=== PATIENT | female | born 1945 | race Caucasian/White ===

== ENCOUNTER 2025-01-05 14:18 | Inpatient (IN) | payer MEDICARE ==
[~2025-01-05] VITALS: Ht 162.6 cm; Wt 72.6 kg
[2025-01-05] MEDS ORDERED: DONE5TAB34 PO (14:41)
[2025-01-05] MEDS ORDERED: QUET25TA PO (14:41)
[2025-01-05] MEDS ORDERED: MEMA10TA PO (14:41)
[2025-01-05] MEDS ORDERED: OLME40TA12 PO (14:41)
[2025-01-05] MEDS ORDERED: TRAZ-182 PO (14:41)
[2025-01-05] MEDS ORDERED: AMLO10TA59 PO (14:41)
[2025-01-05] MEDS ORDERED: CARV25TA2 PO (14:41)
[2025-01-05 15:00] LABS: BASOPHILS % (AUTO) 0.5 % (0.0-2.0); EOSINOPHILS # (AUTO) 0.2 K/uL (0.0-0.7); EOSINOPHILS % (AUTO) 3.6 % (0.0-7.0); HEMATOCRIT 37.6 % (31.2-41.9); HEMOGLOBIN 12.3 g/dL (10.9-14.3); LYMPHOCYTES # (AUTO) 0.5 K/uL (0.8-4.8); LYMPHOCYTES % (AUTO) 12.6 % (20.5-51.5); MEAN CORPUSCULAR HEMOGLOBIN 28.6 uug (24.7-32.8); MEAN CORPUSCULAR HGB CONC 33 g/dL (32.3-35.6); MEAN CORPUSCULAR VOLUME 87.1 fL (75.5-95.3); MONOCYTES # (AUTO) 0.6 K/uL (0.1-1.30); MONOCYTES % (AUTO) 14.9 % (0.0-11.0); NEUTROPHILS # (AUTO) 2.9 K/uL (1.8-8.9); NEUTROPHILS % (AUTO) 68.4 % (38.5-71.5); PLATELET COUNT (AUTO) 124 K/uL (179-408); RED BLOOD CELL COUNT(AUTO) 4.32 MIL/uL (3.63-4.92); RED CELL DISTRIBUTION WIDTH 14.4 % (12.3-17.7); WHITE BLOOD COUNT (AUTO) 4.2 K/uL (3.8-11.8)
[2025-01-05 15:07] LABS: CALCIUM 8.9 mg/dL (8.5-10.1); CARBON DIOXIDE 28 mmol/L (21-32); CHLORIDE 106 mmol/L (98-107); CREATININE 1.1 mg/dL (0.6-1.3); GLUCOSE 154 mg/dL (74-106); POTASSIUM 3.3 mmol/L (3.5-5.1); SODIUM SERUM 144 mmol/L (136-145); UREA NITROGEN, BLOOD 24 mg/dL (7-18)
[2025-01-05 15:10] LABS: DIFFERENTIAL COMMENT 1
[2025-01-05 15:13] LABS: ALANINE AMINOTRANSFERASE 48 U/L (14-59); ALBUMIN 3.1 g/dL (3.4-5.0); ALKALINE PHOSPHATASE 120 U/L (50-136); ASPARTATE AMINOTRANSFERASE 16 U/L (15-37); BILIRUBIN,DIRECT 0.2 mg/dL (0.0-0.2); BILIRUBIN,TOTAL 1.1 mg/dL (0.2-1.0); TOTAL PROTEIN, SERUM 6.8 g/dL (6.4-8.2)
[2025-01-05 15:21] LABS: THYROID STIMULATING HORMONE 1.177 mIU/mL (0.358-3.740)
[2025-01-05 15:24] LABS: ETHANOL < 3 MG/DL (0-10)
[2025-01-05 16:09] LABS: *BILIRUBIN,URIN 1+ (NEGATIVE); *BLOOD, URINE NEGATIVE (NEGATIVE); *CLARITY,URINE CLEAR (CLEAR); *COLOR,URINE DARK YELLOW (YELLOW); *KETONES,URINE NEGATIVE (NEGATIVE); *PROTEIN,URINE 1+ (NEGATIVE); LEUKOCYTE ESTERASE ,URINE NEGATIVE (NEGATIVE); NITRITE, URINE NEGATIVE (NEGATIVE); PH,URINE 5.5 (5.0-8.0); UGLUCOSE NEGATIVE (NEGATIVE)
[2025-01-05 16:25] LABS: *AMPHETAMINE, URINE NEGATIVE (NEGATIVE); *BARBITURATE, URINE NEGATIVE (NEGATIVE); *BENZODIAZEPINE, URINE POSITIVE (NEGATIVE); *CANNABINOID, URINE NEGATIVE (NEGATIVE); *COCCAINE, URINE NEGATIVE (NEGATIVE); *OPIATE, URINE NEGATIVE (NEGATIVE); *PHENCYCLIDINE SCREEN,URINE NEGATIVE (NEGATIVE); FENTANYL, URINE NEGATIVE (NEGATIVE)
[2025-01-05 16:29] LABS: BACTERIA,URINE FEW /HPF (NONE SEEN); RBC,URINE 0-3 /HPF (0-3); SQUAMOUS EPITHELIAL CELL,UR FEW /HPF (NONE SEEN); WBC,URINE 0-3 /HPF (0-3)
[2025-01-05] MEDS ORDERED: LORAZEPAM 1 MG TABLET ONE (18:47)
[2025-01-05] MEDS: LORAZEPAM 0.5 MG TABLET PO ONE (18:48)
[2025-01-05 21:00] VITALS: TEMP 97.9; O2SAT 94
[2025-01-05] MEDS ORDERED: LORAZEPAM 1 MG TABLET PO PRN (21:30)
[2025-01-05] MEDS ORDERED: MAG HYDROX/AL HYDROX/SIMETH 30 ML LIQUID UDC PO PRN (21:30)
[2025-01-05] MEDS ORDERED: MAGNESIUM HYDROXIDE 30 ML LIQUID UDC PO PRN (21:30)
[2025-01-05] MEDS ORDERED: TEMAZEPAM 7.5 MG CAPSULE PO PRN ×2 (21:30)
[2025-01-05] MEDS ORDERED: MEMANTINE HCL 10 MG TABLET PO SCH (22:30)
[2025-01-05] MEDS ORDERED: DONEPEZIL 5 MG TABLET PO SCH (22:30)
[2025-01-05] MEDS: FUROSEMIDE 40 MG TABLET PO ONE (23:21)
[2025-01-05] MEDS: POTASSIUM CHLORIDE 20 MEQ TAB.PRT.SR PO ONE (23:21)
[2025-01-05] MEDS: CARVEDILOL 25 MG TABLET PO SCH (23:23)
[2025-01-06] MEDS: TOBRAMYCIN 0.3% OPHT DROP 5 ML BOTTLE EACHEYE SCH
[2025-01-06] MEDS ORDERED: REMEDY ESSENTIAL ZINC PASTE 113 GM TOP SCH (03:45)
[2025-01-06] MEDS ORDERED: REMEDY ESSENTIAL ZINC PASTE 113 GM TOP PRN (04:21)
[2025-01-06 08:02] VITALS: BP 116/66; TEMP 97.9; O2SAT 94
[2025-01-06] MEDS: AMLODIPINE 10 MG TABLET PO SCH (09:14)
[2025-01-06] MEDS: LOSARTAN POTASSIUM 50 MG TABLET PO SCH (09:14)
[2025-01-06 09:15] VITALS: BP 116/66
[2025-01-06 10:59] VITALS: O2SAT 95
[2025-01-06] MEDS: ALBUTEROL SULFATE 1.25 MG/3 ML NEBU NEB PRN (10:59)
[2025-01-06] MEDS: IPRATROPIUM BROMIDE 0.5 MG/2.5 ML NEBU NEB PRN (10:59)
[2025-01-06] MEDS: ACETYLCYSTEINE 10% 4ML VIAL NEB SCH (10:59)
[2025-01-06 11:09] VITALS: O2SAT 98
[2025-01-06] MEDS: FUROSEMIDE 20 MG TABLET PO SCH (11:25)
[2025-01-06] MEDS: LORAZEPAM 0.5 MG TABLET PO PRN (12:57)
[2025-01-06] MEDS: ACETAMINOPHEN 325 MG TABLET PO PRN (12:58)
[2025-01-06 14:02] LABS: CALCIUM 8.8 mg/dL (8.5-10.1); CARBON DIOXIDE 27 mmol/L (21-32); CHLORIDE 107 mmol/L (98-107); CREATININE 0.9 mg/dL (0.6-1.3); GLUCOSE 128 mg/dL (74-106); MAGNESIUM 2.2 mg/dL (1.8-2.4); POTASSIUM 3.8 mmol/L (3.5-5.1); SODIUM SERUM 144 mmol/L (136-145); UREA NITROGEN, BLOOD 21 mg/dL (7-18)
[2025-01-06 14:20] VITALS: O2SAT 96
[2025-01-06 14:40] VITALS: O2SAT 100
[2025-01-06] MEDS ORDERED: MEMANTINE HCL 5 MG TABLET PO SCH (17:00)
[2025-01-06] MEDS ORDERED: AMLO-212 PO (18:41)
[2025-01-06] MEDS ORDERED: MEMA5TAB42 PO (18:44)
[2025-01-06] MEDS ORDERED: QUETIAPINE FUMARATE 25 MG TABLET PO SCH (21:00)
== END 2025-01-06 16:31 | disposition short-term general hospital (02) | DRG 885 ==
LOC: ER 14:27 → GPS 19:59
PROVIDERS: ADMIT Psychiatry & Neurology Psychosomatic Medicine; ATTEND Nurse Practitioner Acute Care
DX: F29 Unspecified psychosis not due to a substance or known physiological condition (principal); I11.0 Hypertensive heart disease with heart failure; F02.818 Dementia in other diseases classified elsewhere, unspecified severity, with other behavioral disturbance; E44.1 Mild protein-calorie malnutrition; J44.0 Chronic obstructive pulmonary disease with (acute) lower respiratory infection; G30.9 Alzheimer's disease, unspecified; Z68.27 Body mass index [BMI] 27.0-27.9, adult; E87.6 Hypokalemia; J20.9 Acute bronchitis, unspecified; I50.9 Heart failure, unspecified; Z79.899 Other long term (current) drug therapy; Z95.0 Presence of cardiac pacemaker
CPT/HCPCS: 36415; 71045; 83735; 84443; 85025; 94640; 94664; 94760; C1758; G0480; J3590

== ENCOUNTER 2025-01-06 17:49 | Inpatient (IN) | payer MEDICARE ==
[~2025-01-06] VITALS: Ht 162.6 cm; Wt 77.5 kg
[~2025-01-06 17:49] MED LIST: AMLO10TA59 PO; CARV25TA2 PO; DONE5TAB34 PO; MEMA10TA PO; OLME40TA12 PO; QUET25TA PO; TRAZ-182 PO
[2025-01-06 18:19] VITALS: BP 121/57; TEMP 96
[2025-01-06] MEDS: LORAZEPAM 2 MG/1 ML VIAL IM ONE (18:41)
[2025-01-06] MEDS ORDERED: AMLO-212 PO (18:41)
[2025-01-06] MEDS ORDERED: MEMA5TAB42 PO (18:44)
[2025-01-06 20:00] VITALS: BP 133/55; TEMP 98.4; O2SAT 95
[2025-01-06] MEDS ORDERED: MAGNESIUM HYDROXIDE 30 ML LIQUID UDC PO PRN (20:00)
[2025-01-06] MEDS ORDERED: ONDANSETRON 4 MG/2 ML VIAL IV PRN (20:00)
[2025-01-06] MEDS: QUETIAPINE FUMARATE 25 MG TABLET PO SCH (21:08)
[2025-01-06] MEDS: DONEPEZIL 5 MG TABLET PO SCH (21:08)
[2025-01-06] MEDS: ACETAMINOPHEN 325 MG TABLET PO PRN (21:08)
[2025-01-06] MEDS: MEMANTINE HCL 5 MG TABLET PO SCH (21:08)
[2025-01-06] MEDS: ENOXAPARIN SODIUM 40 MG/0.4 ML DISP.SYRIN SQ SCH (21:52)
[2025-01-06] MEDS ORDERED: CEFEPIME HCL 1 G VIAL ONE (22:10)
[2025-01-06] MEDS ORDERED: TOBRAMYCIN 0.3% OPHT DROP 5 ML BOTTLE ONE (22:10)
[2025-01-06 22:17] VITALS: O2SAT 92
[2025-01-06] MEDS: ALBUTEROL SULFATE 1.25 MG/3 ML NEBU NEB PRN (22:17)
[2025-01-06] MEDS: IPRATROPIUM BROMIDE 0.5 MG/2.5 ML NEBU NEB PRN (22:17)
[2025-01-06 22:28] VITALS: O2SAT 96
[2025-01-06] MEDS: ACETYLCYSTEINE 10% 4ML VIAL NEB SCH (22:34)
[2025-01-06 22:43] VITALS: O2SAT 96
[2025-01-06] MEDS: CEFEPIME HCL 1 G in IV DEXTROSE 5% 50 ML IV ONE (22:45)
[2025-01-06] MEDS: TOBRAMYCIN/DEXAMETH OPHT DROP 2.5 ML BOTTLE RIGHTEYE SCH (23:14)
[2025-01-07] VITALS (11 sets, daily range): BP systolic 122–144; BP diastolic 58–77; TEMP 97.8–98.8; O2SAT 92–99
[2025-01-07] MEDS: TRAZODONE 50 MG TABLET PO PRN (00:17)
[2025-01-07] MEDS ORDERED: TRAZODONE 50 MG TABLET PO PRN (05:00)
[2025-01-07] MEDS ORDERED: CEFEPIME HCL 1 G in IV DEXTROSE 5% 50 ML IV ONE (06:00)
[2025-01-07 07:04] LABS: BASOPHILS % (AUTO) 0.7 % (0.0-2.0); EOSINOPHILS # (AUTO) 0.1 K/uL (0.0-0.7); EOSINOPHILS % (AUTO) 2.2 % (0.0-7.0); HEMATOCRIT 37.5 % (31.2-41.9); HEMOGLOBIN 12.3 g/dL (10.9-14.3); LYMPHOCYTES # (AUTO) 0.5 K/uL (0.8-4.8); LYMPHOCYTES % (AUTO) 8.5 % (20.5-51.5); MEAN CORPUSCULAR HEMOGLOBIN 28.7 uug (24.7-32.8); MEAN CORPUSCULAR HGB CONC 33 g/dL (32.3-35.6); MEAN CORPUSCULAR VOLUME 87.8 fL (75.5-95.3); MONOCYTES # (AUTO) 0.9 K/uL (0.1-1.30); MONOCYTES % (AUTO) 15.8 % (0.0-11.0); NEUTROPHILS # (AUTO) 3.9 K/uL (1.8-8.9); NEUTROPHILS % (AUTO) 72.8 % (38.5-71.5); PLATELET COUNT (AUTO) 137 K/uL (179-408); RED BLOOD CELL COUNT(AUTO) 4.28 MIL/uL (3.63-4.92); RED CELL DISTRIBUTION WIDTH 14.2 % (12.3-17.7); WHITE BLOOD COUNT (AUTO) 5.4 K/uL (3.8-11.8)
[2025-01-07 07:29] LABS: CARBON DIOXIDE 25 mmol/L (21-32); CHLORIDE 107 mmol/L (98-107); GLUCOSE 121 mg/dL (74-106); PHOSPHOROUS 3.1 mg/dL (2.5-4.9); POTASSIUM 3.3 mmol/L (3.5-5.1); SODIUM SERUM 144 mmol/L (136-145); UREA NITROGEN, BLOOD 20 mg/dL (7-18)
[2025-01-07 07:30] LABS: DIFFERENTIAL COMMENT 1
[2025-01-07 07:51] LABS: CALCIUM 8.7 mg/dL (8.5-10.1)
[2025-01-07] MEDS: AMLODIPINE 5 MG TABLET PO SCH (08:34)
[2025-01-07] MEDS: FUROSEMIDE 40 MG/4 ML VIAL IV ONE (08:34)
[2025-01-07] MEDS ORDERED: QUETIAPINE FUMARATE 25 MG TABLET PO SCH (09:00)
[2025-01-07 09:17] LABS: ANISOCYTOSIS 1+; EOSINOPHILS % (MANUAL) 1 % (0-8); LYMPHOCYTES % (MANUAL) 12 % (20-40); MONOCYTES % (MANUAL) 20 % (2-10); NEUTROPHILS % (MANUAL) 67 % (42-75); PLATELET ESTIMATE MODERATELY DECREASED
[2025-01-07] MEDS: CEFEPIME HCL 1 G in IV DEXTROSE 5% 50 ML IV SCH (10:20)
[2025-01-07] MEDS ORDERED: REMEDY ESSENTIAL ZINC PASTE 113 GM TOP PRN (10:30)
[2025-01-07] MEDS ORDERED: TOBRAMYCIN/DEXAMETH OPHT DROP 2.5 ML BOTTLE RIGHTEYE SCH (12:00)
[2025-01-07] MEDS: TOBRAMYCIN 0.3% OPHT DROP 5 ML BOTTLE RIGHTEYE SCH (13:12)
[2025-01-07] MEDS: POTASSIUM CHLORIDE 20 MEQ TAB.PRT.SR PO ONE (13:12)
[2025-01-07] MEDS ORDERED: TOBRAMYCIN SULFATE OPHT OINT 3.5 GM TUBE RIGHTEYE SCH (14:00)
[2025-01-07] MEDS ORDERED: QUETIAPINE FUMARATE 25 MG TABLET PO PRN (15:30)
[2025-01-07] MEDS: QUETIAPINE FUMARATE 25 MG TABLET PO SCH ×2 (16:20→20:47)
[2025-01-07] MEDS: CLOTRIMAZOLE 1% CREAM 30 GM TUBE TOP SCH (16:23)
[2025-01-07] MEDS: TOBRAMYCIN 0.3% OPHT DROP 5 ML BOTTLE EACHEYE SCH (20:47)
[2025-01-07] MEDS: REMEDY ESSENTIAL ZINC PASTE 113 GM TOP SCH (20:48)
[2025-01-07] MEDS ORDERED: DONEPEZIL 5 MG TABLET PO SCH (21:00)
[2025-01-08] VITALS (11 sets, daily range): BP systolic 116–172; BP diastolic 61–80; TEMP 97.8–98.6; O2SAT 93–99
[2025-01-08 07:07] LABS: CALCIUM 9.4 mg/dL (8.5-10.1); CARBON DIOXIDE 26 mmol/L (21-32); CHLORIDE 107 mmol/L (98-107); CREATININE 0.9 mg/dL (0.6-1.3); GLUCOSE 113 mg/dL (74-106); POTASSIUM 3.5 mmol/L (3.5-5.1); SODIUM SERUM 146 mmol/L (136-145); UREA NITROGEN, BLOOD 14 mg/dL (7-18)
[2025-01-08] MEDS ORDERED: POTASSIUM CHLORIDE 20 MEQ POWDER PACKET GT ONE (08:45)
[2025-01-08] MEDS: POTASSIUM CHLORIDE 20 MEQ TAB.PRT.SR PO ONE (09:14)
[2025-01-08] MEDS ORDERED: QUETIAPINE FUMARATE 25 MG TABLET PO PRN (12:00)
[2025-01-08] MEDS: QUETIAPINE FUMARATE 25 MG TABLET PO ONE (12:04)
[2025-01-08] MEDS ORDERED: AMOX1TAB15 PO (14:00)
[2025-01-08] MEDS: QUETIAPINE FUMARATE 25 MG TABLET PO SCH (18:37)
[2025-01-08] MEDS: hydrALAZINE HCL 25 MG TABLET PO ONE (23:11)
[2025-01-09] VITALS (7 sets, daily range): BP systolic 137–169; BP diastolic 62–77; TEMP 98.2–98.6; O2SAT 91–99
[2025-01-09] MEDS: LORAZEPAM 2 MG/1 ML VIAL IV ONE (01:04)
[2025-01-09] MEDS ORDERED: AZITHROMYCIN 250 MG TABLET PO SCH (11:00)
[2025-01-09] MEDS: OLANZAPINE 10 MG VIAL IM ONE (11:08)
[2025-01-09] MEDS: CEFDINIR 300 MG CAPSULE PO SCH (12:21)
[2025-01-09] MEDS: OLANZAPINE 2.5 MG TABLET PO SCH (15:18)
[2025-01-09] MEDS: hydrALAZINE HCL 25 MG TABLET PO ONE (15:47)
[2025-01-09] MEDS: AMLODIPINE 5 MG TABLET PO ONE (16:22)
[2025-01-09] MEDS ORDERED: OLANZAPINE 2.5 MG TABLET PO SCH (21:00)
[2025-01-10] MEDS ORDERED: OLANZAPINE 5 MG TABLET PO SCH (08:00)
[2025-01-10] MEDS ORDERED: AMLODIPINE 5 MG TABLET PO SCH (09:00)
[2025-01-10] MEDS ORDERED: AMLODIPINE 10 MG TABLET PO SCH (09:00)
== END 2025-01-09 17:22 | DRG 291 ==
LOC: TELE3 17:49 → MEDSURG3 01-09 10:32
PROVIDERS: ADMIT Nurse Practitioner Acute Care; ATTEND Nurse Practitioner Acute Care
DX: I11.0 Hypertensive heart disease with heart failure (principal); G93.41 Metabolic encephalopathy; I50.33 Acute on chronic diastolic (congestive) heart failure; N39.0 Urinary tract infection, site not specified; E44.1 Mild protein-calorie malnutrition; J44.0 Chronic obstructive pulmonary disease with (acute) lower respiratory infection; H44.001 Unspecified purulent endophthalmitis, right eye; F03.93 Unspecified dementia, unspecified severity, with mood disturbance; J20.9 Acute bronchitis, unspecified; I44.7 Left bundle-branch block, unspecified; Z95.0 Presence of cardiac pacemaker; E87.6 Hypokalemia; F31.9 Bipolar disorder, unspecified; F10.10 Alcohol abuse, uncomplicated; Z95.1 Presence of aortocoronary bypass graft; E88.09 Other disorders of plasma-protein metabolism, not elsewhere classified
CPT/HCPCS: 36415; 71045; 83735; 84100; 85025; 93307; 94640; 94760; G0378; J0692; J1650; J1940; J2060; J2358; J3590

== ENCOUNTER 2025-01-09 17:56 | Inpatient (IN) | payer MEDICARE ==
[~2025-01-09] VITALS: Ht 162.6 cm; Wt 72.6 kg
[~2025-01-09 17:56] MED LIST changes: +AMLO-212 PO; -AMLO10TA59 PO; +AMOX1TAB15 PO; -CARV25TA2 PO; -MEMA10TA PO; +MEMA5TAB42 PO; -OLME40TA12 PO
[2025-01-09 18:43] VITALS: BP 143/67; TEMP 98.4; O2SAT 94
[2025-01-09] MEDS: BLOOD SUGAR DIAGNOSTIC 1 EACH STRIP VI ONE (19:55)
[2025-01-09] MEDS ORDERED: MAG HYDROX/AL HYDROX/SIMETH 30 ML LIQUID UDC PO PRN (20:00)
[2025-01-09] MEDS ORDERED: TEMAZEPAM 7.5 MG CAPSULE PO PRN ×2 (20:00)
[2025-01-09] MEDS ORDERED: LORAZEPAM 1 MG TABLET PO PRN (20:00)
[2025-01-09] MEDS: LORAZEPAM 1 MG TABLET PO PRN (20:55)
[2025-01-09 21:30] VITALS: BP 143/67; TEMP 98.4; O2SAT 94
[2025-01-09] MEDS ORDERED: TRAZODONE 50 MG TABLET PO PRN (22:00)
[2025-01-10] MEDS ORDERED: LORAZEPAM 1 MG TABLET PO PRN (05:45)
[2025-01-10] MEDS ORDERED: TEMAZEPAM 7.5 MG CAPSULE PO PRN (05:45)
[2025-01-10 08:12] VITALS: BP 148/61; TEMP 98.2; O2SAT 94
[2025-01-10] MEDS: AMOXICILLIN-CLAVUL 500-125MG TABLET PO SCH (08:47)
[2025-01-10] MEDS: AMLODIPINE 5 MG TABLET PO SCH (08:48)
[2025-01-10] MEDS ORDERED: MEMANTINE HCL 5 MG TABLET PO SCH (09:00)
[2025-01-10] MEDS: OLANZAPINE 2.5 MG TABLET PO SCH (12:23)
[2025-01-10] MEDS: LORAZEPAM 0.5 MG TABLET PO PRN (15:56)
[2025-01-10 16:18] VITALS: BP 122/102; TEMP 98.6; O2SAT 99
[2025-01-10 19:52] VITALS: BP 148/64; TEMP 98.3; O2SAT 98
[2025-01-10] MEDS: OLANZAPINE 5 MG TABLET PO SCH (20:03)
[2025-01-10] MEDS ORDERED: OLANZAPINE 5 MG TABLET PO SCH (21:00)
[2025-01-10] MEDS ORDERED: DONEPEZIL 5 MG TABLET PO SCH (21:00)
[2025-01-11 08:29] LABS: BASOPHILS # (AUTO) 0.1 K/UL (0.0-0.2); BASOPHILS % (AUTO) 0.8 % (0.0-2.0); EOSINOPHILS # (AUTO) 0.2 K/uL (0.0-0.7); EOSINOPHILS % (AUTO) 2.7 % (0.0-7.0); HEMATOCRIT 41.8 % (31.2-41.9); HEMOGLOBIN 13.7 g/dL (10.9-14.3); LYMPHOCYTES # (AUTO) 0.8 K/uL (0.8-4.8); LYMPHOCYTES % (AUTO) 12.5 % (20.5-51.5); MEAN CORPUSCULAR HEMOGLOBIN 28.3 uug (24.7-32.8); MEAN CORPUSCULAR HGB CONC 33 g/dL (32.3-35.6); MEAN CORPUSCULAR VOLUME 86.2 fL (75.5-95.3); MONOCYTES # (AUTO) 0.9 K/uL (0.1-1.30); NEUTROPHILS # (AUTO) 4.8 K/uL (1.8-8.9); PLATELET COUNT (AUTO) 208 K/uL (179-408); RED BLOOD CELL COUNT(AUTO) 4.85 MIL/uL (3.63-4.92); RED CELL DISTRIBUTION WIDTH 14.5 % (12.3-17.7); WHITE BLOOD COUNT (AUTO) 6.7 K/uL (3.8-11.8)
[2025-01-11 08:41] LABS: CALCIUM 9.1 mg/dL (8.5-10.1); CARBON DIOXIDE 25 mmol/L (21-32); CHLORIDE 108 mmol/L (98-107); CREATININE 0.9 mg/dL (0.6-1.3); GLUCOSE 110 mg/dL (74-106); MAGNESIUM 2.3 mg/dL (1.8-2.4); PHOSPHOROUS 4.1 mg/dL (2.5-4.9); POTASSIUM 3.7 mmol/L (3.5-5.1); SODIUM SERUM 145 mmol/L (136-145); UREA NITROGEN, BLOOD 13 mg/dL (7-18)
[2025-01-11 08:44] LABS: DIFFERENTIAL COMMENT 1
[2025-01-11 08:47] VITALS: BP 148/72; TEMP 98; O2SAT 98
[2025-01-11 15:26] VITALS: BP 148/82; TEMP 98; O2SAT 98
[2025-01-11 19:39] VITALS: BP 121/64; TEMP 98; O2SAT 98
[2025-01-11] MEDS: ATORVASTATIN 10 MG TABLET PO SCH (20:11)
[2025-01-11] MEDS: TEMAZEPAM 7.5 MG CAPSULE PO PRN (21:30)
[2025-01-11] MEDS: LORAZEPAM 0.5 MG TABLET PO PRN (22:53)
[2025-01-12 07:30] VITALS: BP 157/77; TEMP 98.3; O2SAT 95
[2025-01-12 16:55] VITALS: BP 130/64; TEMP 98; O2SAT 95
[2025-01-12 19:57] VITALS: BP 138/66; TEMP 98.1; O2SAT 95
[2025-01-13 08:08] VITALS: BP 135/71; TEMP 98.5; O2SAT 99
[2025-01-13 16:36] VITALS: BP 134/82; TEMP 98; O2SAT 100
[2025-01-13] MEDS: GUAIFENESIN/DEXTROMETHORPHAN 5 ML UDC PO PRN (18:14)
[2025-01-13 20:09] VITALS: BP 105/72; TEMP 98.1; O2SAT 95
[2025-01-13] MEDS: OLANZAPINE 5 MG TABLET PO SCH (20:28)
[2025-01-14 08:08] VITALS: BP 171/88; TEMP 97.9; O2SAT 98
[2025-01-14] MEDS: GUAIFENESIN LA 600 MG TABLET.SA PO SCH (12:12)
[2025-01-14 15:30] LABS: BASOPHILS % (AUTO) 0.4 % (0.0-2.0); EOSINOPHILS # (AUTO) 0.2 K/uL (0.0-0.7); EOSINOPHILS % (AUTO) 2.4 % (0.0-7.0); HEMATOCRIT 42.3 % (31.2-41.9); HEMOGLOBIN 13.6 g/dL (10.9-14.3); LYMPHOCYTES % (AUTO) 15.5 % (20.5-51.5); MEAN CORPUSCULAR HEMOGLOBIN 27.8 uug (24.7-32.8); MEAN CORPUSCULAR HGB CONC 32 g/dL (32.3-35.6); MEAN CORPUSCULAR VOLUME 86.3 fL (75.5-95.3); MONOCYTES # (AUTO) 0.6 K/uL (0.1-1.30); MONOCYTES % (AUTO) 8.8 % (0.0-11.0); NEUTROPHILS # (AUTO) 4.7 K/uL (1.8-8.9); NEUTROPHILS % (AUTO) 72.9 % (38.5-71.5); PLATELET COUNT (AUTO) 179 K/uL (179-408); RED CELL DISTRIBUTION WIDTH 14.5 % (12.3-17.7); WHITE BLOOD COUNT (AUTO) 6.5 K/uL (3.8-11.8)
[2025-01-14 15:32] LABS: DIFFERENTIAL COMMENT 1
[2025-01-14 15:40] LABS: ALANINE AMINOTRANSFERASE 29 U/L (14-59); ALBUMIN 3.3 g/dL (3.4-5.0); ALKALINE PHOSPHATASE 119 U/L (50-136); ASPARTATE AMINOTRANSFERASE 20 U/L (15-37); BILIRUBIN,TOTAL 0.5 mg/dL (0.2-1.0); CALCIUM 8.7 mg/dL (8.5-10.1); CARBON DIOXIDE 28 mmol/L (21-32); CHLORIDE 107 mmol/L (98-107); CREATININE 0.9 mg/dL (0.6-1.3); GLUCOSE 106 mg/dL (74-106); POTASSIUM 3.7 mmol/L (3.5-5.1); SODIUM SERUM 146 mmol/L (136-145); TOTAL PROTEIN, SERUM 7.2 g/dL (6.4-8.2); UREA NITROGEN, BLOOD 13 mg/dL (7-18)
[2025-01-14 16:10] VITALS: BP 123/60; TEMP 98.1; O2SAT 99
[2025-01-14 20:17] VITALS: BP 145/80; TEMP 97.9; O2SAT 96
[2025-01-15 07:49] VITALS: BP 153/83; TEMP 98.2; O2SAT 98
[2025-01-15] MEDS: ENSURE ENLIVE (VAN) 240 ML LIQUID PO SCH (08:39)
[2025-01-15 15:02] VITALS: BP 141/74; TEMP 98.2; O2SAT 96
[2025-01-15] MEDS: OLANZAPINE 5 MG TABLET PO SCH (20:49)
[2025-01-15 21:40] VITALS: BP 89/65; TEMP 98.1; O2SAT 95
[2025-01-16 07:55] VITALS: BP 131/64; TEMP 98; O2SAT 96
[2025-01-16 11:34] LABS: BASOPHILS % (AUTO) 0.4 % (0.0-2.0); EOSINOPHILS # (AUTO) 0.1 K/uL (0.0-0.7); EOSINOPHILS % (AUTO) 1.7 % (0.0-7.0); HEMATOCRIT 42.2 % (31.2-41.9); HEMOGLOBIN 13.6 g/dL (10.9-14.3); LYMPHOCYTES # (AUTO) 0.8 K/uL (0.8-4.8); LYMPHOCYTES % (AUTO) 10.3 % (20.5-51.5); MEAN CORPUSCULAR HEMOGLOBIN 27.8 uug (24.7-32.8); MEAN CORPUSCULAR HGB CONC 32 g/dL (32.3-35.6); MEAN CORPUSCULAR VOLUME 85.9 fL (75.5-95.3); MONOCYTES # (AUTO) 0.4 K/uL (0.1-1.30); MONOCYTES % (AUTO) 4.8 % (0.0-11.0); NEUTROPHILS # (AUTO) 6.6 K/uL (1.8-8.9); NEUTROPHILS % (AUTO) 82.8 % (38.5-71.5); PLATELET COUNT (AUTO) 185 K/uL (179-408); RED BLOOD CELL COUNT(AUTO) 4.91 MIL/uL (3.63-4.92); RED CELL DISTRIBUTION WIDTH 14.3 % (12.3-17.7)
[2025-01-16 11:54] LABS: ALANINE AMINOTRANSFERASE 28 U/L (14-59); ALBUMIN 3.3 g/dL (3.4-5.0); ALKALINE PHOSPHATASE 109 U/L (50-136); ASPARTATE AMINOTRANSFERASE 18 U/L (15-37); BILIRUBIN,TOTAL 0.5 mg/dL (0.2-1.0); CALCIUM 9.3 mg/dL (8.5-10.1); CARBON DIOXIDE 29 mmol/L (21-32); CHLORIDE 109 mmol/L (98-107); CREATININE 0.9 mg/dL (0.6-1.3); GLUCOSE 118 mg/dL (74-106); POTASSIUM 3.9 mmol/L (3.5-5.1); SODIUM SERUM 143 mmol/L (136-145); TOTAL PROTEIN, SERUM 6.8 g/dL (6.4-8.2); UREA NITROGEN, BLOOD 14 mg/dL (7-18)
[2025-01-16] MEDS: OLANZAPINE 2.5 MG TABLET PO SCH (13:41)
[2025-01-16 15:11] VITALS: BP 128/80; TEMP 98; O2SAT 98
[2025-01-16 19:50] VITALS: BP 152/71; TEMP 98; O2SAT 98
[2025-01-16] MEDS: OLANZAPINE 5 MG TABLET PO SCH (20:31)
[2025-01-17] MEDS: ACETAMINOPHEN 325 MG TABLET PO PRN (00:33)
[2025-01-17 08:08] VITALS: BP 139/81; TEMP 98.1; O2SAT 99
[2025-01-17] MEDS: OLANZAPINE 5 MG TABLET PO SCH (19:35)
[2025-01-17 20:00] LABS: *BILIRUBIN,URIN NEGATIVE (NEGATIVE); *BLOOD, URINE NEGATIVE (NEGATIVE); *CLARITY,URINE CLEAR (CLEAR); *COLOR,URINE YELLOW (YELLOW); *KETONES,URINE NEGATIVE (NEGATIVE); *PROTEIN,URINE NEGATIVE (NEGATIVE); LEUKOCYTE ESTERASE ,URINE 1+ (NEGATIVE); NITRITE, URINE NEGATIVE (NEGATIVE); UGLUCOSE NEGATIVE (NEGATIVE)
[2025-01-17 20:14] LABS: BACTERIA,URINE FEW /HPF (NONE SEEN); RBC,URINE NONE SEEN /HPF (0-3); SQUAMOUS EPITHELIAL CELL,UR MODERATE /HPF (NONE SEEN); YEAST,URINE FEW /HPF (NONE SEEN)
[2025-01-17 21:21] VITALS: BP 140/77; TEMP 98.6; O2SAT 95
[2025-01-18 08:27] VITALS: BP 126/72; TEMP 98.2; O2SAT 100
[2025-01-18] MEDS: OLANZAPINE 2.5 MG TABLET PO SCH (08:49)
[2025-01-18 16:17] VITALS: BP 137/62; TEMP 98; O2SAT 96
[2025-01-18 20:00] VITALS: BP 98/69; TEMP 99; O2SAT 95
[2025-01-18] MEDS: AMOXICILLIN-CLAVUL 875-125MG TABLET PO SCH (20:15)
[2025-01-19 08:21] VITALS: BP 141/69; TEMP 98; O2SAT 98
[2025-01-19 15:20] VITALS: BP 126/78; TEMP 98.4; O2SAT 98
[2025-01-19 20:03] VITALS: BP 141/66; TEMP 98.2; O2SAT 98
[2025-01-19] MEDS: MELATONIN 3 MG TABLET PO SCH (20:14)
[2025-01-20 10:00] VITALS: BP 123/75; TEMP 97.6; O2SAT 96
[2025-01-20] MEDS: TOBRAMYCIN/DEXAMETH OPHT DROP 2.5 ML BOTTLE EACHEYE SCH (12:34)
[2025-01-20] MEDS: MAGNESIUM HYDROXIDE 30 ML LIQUID UDC PO PRN (13:20)
[2025-01-20 16:00] VITALS: BP 116/71; TEMP 98.6; O2SAT 95
[2025-01-20] MEDS ORDERED: MIRALAX 17 GM POWD.PACK PO PRN (19:30)
[2025-01-20 20:00] VITALS: BP 146/77; TEMP 98.4; O2SAT 94
[2025-01-20] MEDS: DOCUSATE SODIUM 100 MG CAPSULE PO SCH (20:39)
[2025-01-20] MEDS: DICYCLOMINE HCL 20 MG TABLET PO PRN (22:42)
[2025-01-21 08:06] VITALS: BP 140/95; TEMP 98.3; O2SAT 96
[2025-01-21 08:21] LABS: BASOPHILS # (AUTO) 0.1 K/UL (0.0-0.2); BASOPHILS % (AUTO) 1.3 % (0.0-2.0); EOSINOPHILS # (AUTO) 0.2 K/uL (0.0-0.7); EOSINOPHILS % (AUTO) 2.9 % (0.0-7.0); HEMATOCRIT 39.7 % (31.2-41.9); HEMOGLOBIN 12.9 g/dL (10.9-14.3); LYMPHOCYTES # (AUTO) 0.9 K/uL (0.8-4.8); LYMPHOCYTES % (AUTO) 16.7 % (20.5-51.5); MEAN CORPUSCULAR HEMOGLOBIN 28.1 uug (24.7-32.8); MEAN CORPUSCULAR HGB CONC 33 g/dL (32.3-35.6); MEAN CORPUSCULAR VOLUME 86.3 fL (75.5-95.3); MONOCYTES # (AUTO) 0.6 K/uL (0.1-1.30); MONOCYTES % (AUTO) 11.2 % (0.0-11.0); NEUTROPHILS # (AUTO) 3.8 K/uL (1.8-8.9); NEUTROPHILS % (AUTO) 67.9 % (38.5-71.5); PLATELET COUNT (AUTO) 213 K/uL (179-408); RED CELL DISTRIBUTION WIDTH 14.3 % (12.3-17.7); WHITE BLOOD COUNT (AUTO) 5.6 K/uL (3.8-11.8)
[2025-01-21 08:29] LABS: DIFFERENTIAL COMMENT 1
[2025-01-21 08:38] LABS: ALANINE AMINOTRANSFERASE 21 U/L (14-59); ALBUMIN 3.1 g/dL (3.4-5.0); ALKALINE PHOSPHATASE 109 U/L (50-136); ASPARTATE AMINOTRANSFERASE 22 U/L (15-37); BILIRUBIN,TOTAL 0.6 mg/dL (0.2-1.0); CALCIUM 9.1 mg/dL (8.5-10.1); CARBON DIOXIDE 29 mmol/L (21-32); CHLORIDE 108 mmol/L (98-107); CREATININE 0.8 mg/dL (0.6-1.3); GLUCOSE 99 mg/dL (74-106); POTASSIUM 4.3 mmol/L (3.5-5.1); SODIUM SERUM 144 mmol/L (136-145); TOTAL PROTEIN, SERUM 6.8 g/dL (6.4-8.2); UREA NITROGEN, BLOOD 11 mg/dL (7-18)
[2025-01-21 16:16] VITALS: BP 141/89; TEMP 98; O2SAT 100
[2025-01-21] MEDS: OLANZAPINE 5 MG TABLET PO SCH (16:32)
[2025-01-21] MEDS ORDERED: OLANZAPINE 5 MG TABLET PO SCH (20:00)
[2025-01-22] MEDS: OLANZAPINE 2.5 MG TABLET PO PRN (02:01)
[2025-01-22 07:59] VITALS: BP_SYST 139; BP_SYST 158; BP_DIAS 73; BP_DIAS 82; TEMP 98.2; O2SAT 99
[2025-01-22 15:21] VITALS: BP 96/44; TEMP 98; O2SAT 96
[2025-01-22 19:48] VITALS: BP 109/56; TEMP 98.1; O2SAT 98
[2025-01-22] MEDS: NITROFURANTOIN/NITROFURAN MAC 100 MG CAPSULE PO SCH (21:00)
[2025-01-22] MEDS: LORAZEPAM 0.5 MG TABLET PO PRN (21:00)
[2025-01-23 08:00] VITALS: BP 99/75; TEMP 98; O2SAT 96
[2025-01-23 15:19] VITALS: BP 147/80; TEMP 98; O2SAT 96
[2025-01-23 20:00] VITALS: BP 145/69; TEMP 98.1; O2SAT 100
[2025-01-23] MEDS: LORAZEPAM 0.5 MG TABLET PO SCH (20:21)
[2025-01-23] MEDS: OLANZAPINE 2.5 MG TABLET PO PRN (23:23)
[2025-01-24 08:04] VITALS: BP 131/75; TEMP 98; O2SAT 99
[2025-01-24 11:53] LABS: BASOPHILS # (AUTO) 0.1 K/UL (0.0-0.2); BASOPHILS % (AUTO) 1.1 % (0.0-2.0); EOSINOPHILS # (AUTO) 0.2 K/uL (0.0-0.7); HEMOGLOBIN 13.2 g/dL (10.9-14.3); LYMPHOCYTES # (AUTO) 0.7 K/uL (0.8-4.8); MEAN CORPUSCULAR HEMOGLOBIN 28.2 uug (24.7-32.8); MEAN CORPUSCULAR HGB CONC 33 g/dL (32.3-35.6); MEAN CORPUSCULAR VOLUME 85.6 fL (75.5-95.3); MONOCYTES # (AUTO) 0.5 K/uL (0.1-1.30); MONOCYTES % (AUTO) 9.4 % (0.0-11.0); NEUTROPHILS # (AUTO) 4.2 K/uL (1.8-8.9); NEUTROPHILS % (AUTO) 73.5 % (38.5-71.5); PLATELET COUNT (AUTO) 233 K/uL (179-408); RED BLOOD CELL COUNT(AUTO) 4.68 MIL/uL (3.63-4.92); RED CELL DISTRIBUTION WIDTH 14.1 % (12.3-17.7); WHITE BLOOD COUNT (AUTO) 5.7 K/uL (3.8-11.8)
[2025-01-24 12:02] LABS: DIFFERENTIAL COMMENT 1
[2025-01-24 12:07] LABS: CALCIUM 9.3 mg/dL (8.5-10.1); CARBON DIOXIDE 24 mmol/L (21-32); CHLORIDE 108 mmol/L (98-107); CREATININE 0.8 mg/dL (0.6-1.3); GLUCOSE 117 mg/dL (74-106); POTASSIUM 3.9 mmol/L (3.5-5.1); SODIUM SERUM 145 mmol/L (136-145); UREA NITROGEN, BLOOD 12 mg/dL (7-18)
[2025-01-24 12:14] LABS: ALANINE AMINOTRANSFERASE 18 U/L (14-59); ALBUMIN 3.3 g/dL (3.4-5.0); ALKALINE PHOSPHATASE 122 U/L (50-136); ASPARTATE AMINOTRANSFERASE 19 U/L (15-37); BILIRUBIN,TOTAL 0.4 mg/dL (0.2-1.0); TOTAL PROTEIN, SERUM 6.9 g/dL (6.4-8.2)
[2025-01-24] MEDS: DIVALPROEX SPRINKLE 125 MG CAP.SPRINK PO SCH (13:58)
[2025-01-24 16:12] VITALS: BP 135/90; TEMP 98.3; O2SAT 99
[2025-01-24 20:01] VITALS: BP 130/78; TEMP 98.1; O2SAT 98
[2025-01-24] MEDS ORDERED: DIVALPROEX SPRINKLE 125 MG CAP.SPRINK PO SCH (21:00)
[2025-01-25 08:12] VITALS: BP 134/72; TEMP 98.2; O2SAT 99
[2025-01-25 16:23] VITALS: BP 138/56; TEMP 98; O2SAT 98
[2025-01-25 20:01] VITALS: BP 134/76; TEMP 98.1; O2SAT 95
[2025-01-26] MEDS: REMEDY ESSENTIAL ZINC PASTE 113 GM TOP SCH (08:48)
[2025-01-26 10:00] VITALS: BP 131/78; TEMP 98.2; O2SAT 98
[2025-01-26 15:03] VITALS: BP 134/79; TEMP 98; O2SAT 99
[2025-01-26] MEDS: DIVALPROEX SPRINKLE 125 MG CAP.SPRINK PO SCH ×2 (16:50→20:13)
[2025-01-27 08:12] VITALS: BP 144/74; TEMP 98.5; O2SAT 97
[2025-01-27 08:42] VITALS: BP 144/74
== END 2025-01-27 11:00 | DRG 885 ==
LOC: GPS 17:56
PROVIDERS: ADMIT Psychiatry & Neurology Psychosomatic Medicine; ATTEND Nurse Practitioner Acute Care
DX: F31.9 Bipolar disorder, unspecified (principal); I11.0 Hypertensive heart disease with heart failure; E44.1 Mild protein-calorie malnutrition; F03.92 Unspecified dementia, unspecified severity, with psychotic disturbance; F03.93 Unspecified dementia, unspecified severity, with mood disturbance; I50.32 Chronic diastolic (congestive) heart failure; J44.0 Chronic obstructive pulmonary disease with (acute) lower respiratory infection; I44.7 Left bundle-branch block, unspecified; Z95.0 Presence of cardiac pacemaker; E78.5 Hyperlipidemia, unspecified; J20.9 Acute bronchitis, unspecified
CPT/HCPCS: 36415; 70450; 74018; 83735; 84100; 85025; 87086; 93005